=== PATIENT | female | born 1945 | race Two or more races ===

== ENCOUNTER 2018-06-24 06:20 | Day surgery (SDC) | payer OTHER ==
[2018-06-24] MEDS ORDERED: CEFAZOLIN 1 GM INJ (07:00)
[2018-06-24] MEDS ORDERED: SOD CHLORIDE 0.9% 1,000 ML IV (07:00)
[2018-06-24] MEDS ORDERED: EPHEDrine SULFATE 50 MG/5 ML SYG (07:00)
[2018-06-24] MEDS ORDERED: CEFAZOLIN 1 GM/50 ML (PMX) 50 ML IVPB (07:00)
[2018-06-24] MEDS ORDERED: SEVOFLURANE 15 MIN (07:00)
[2018-06-24 07:34] LABS: ADD MAN DIFF? NO
[2018-06-24 07:44] LABS: BASOPHILS % 0.9 % (0.0-2.0); EOSINOPHILS # 0.5 10^3/ul (0.0-0.5); EOSINOPHILS % 11.7 % (0.0-7.0); HEMATOCRIT 36.9 % (37.0-47.0); LYMPHOCYTES # 1.7 10^3/ul (0.8-2.9); LYMPHOCYTES % 37.2 % (15.0-51.0); MEAN CORPUSCULAR HEMOGLOBIN 24.1 pg (29.0-33.0); MEAN CORPUSCULAR HGB CONC 29.8 g/dl (32.0-37.0); MEAN CORPUSCULAR VOLUME 80.9 fl (82.0-101.0); MEAN PLATELET VOLUME 9.9 fl (7.4-10.4); MONOCYTE # 0.4 10^3/ul (0.3-0.9); MONOCYTES % 8.4 % (0.0-11.0); NEUTROPHIL # 1.9 10^3/ul (1.6-7.5); NEUTROPHILS % 41.6 % (39.0-77.0); PLATELET COUNT 308 10^3/UL (140-415); RED BLOOD COUNT 4.56 10^6/ul (4.20-5.40)
[2018-06-24 07:44] LABS: WHITE BLOOD COUNT 4.5 10^3/ul (4.8-10.8)
[2018-06-24 07:56] LABS: INR 0.91; PROTIME 12.4 Sec (11.9-14.9)
[2018-06-24 07:59] LABS: PARTIAL THROMBOPLASTIN TIME 24.8 Sec (23.0-35.0)
[2018-06-24 08:09] LABS: ALANINE AMINOTRANSFERASE 20 IU/L (13-69); ALBUMIN 4.5 g/dl (3.3-4.9); ALBUMIN/GLOBULIN RATIO 1.12; ALKALINE PHOSPHATASE 74 IU/L (42-121); ANION GAP 10 (5-13); ASPARTATE AMINO TRANSFERASE 28 IU/L (15-46); BILIRUBIN,INDIRECT 0.2 mg/dl (0-1.1); BILIRUBIN,TOTAL 0.2 mg/dl (0.2-1.3); BLOOD UREA NITROGEN 18 mg/dl (7-20); CALCIUM 9.4 mg/dl (8.4-10.2); CARBON DIOXIDE 28 mmol/L (21-31); CHLORIDE 104 mmol/L (97-110); GLUCOSE 90 mg/dl (70-220); POTASSIUM 4.2 mmol/L (3.5-5.1); SODIUM 142 mmol/L (135-144); TOTAL PROTEIN 8.5 g/dl (6.1-8.1)
[2018-06-24 08:14] LABS: CREATININE 1.18 mg/dl (0.44-1.00)
[2018-06-24] MEDS ORDERED: MIDAZOLAM 1 MG/ML 2 ML INJ (11:39)
[2018-06-24] MEDS ORDERED: PROPOFOL 20 ML (11:39)
[2018-06-24] MEDS ORDERED: FENTAnyl 50 MCG/ML VIAL (11:39)
[2018-06-24] MEDS ORDERED: HYDROCORTISONE 100 MG INJ (11:39)
[2018-06-24] MEDS ORDERED: DEXAMETHASONE 4 MG/ML 5 ML INJ (11:50)
[2018-06-24] MEDS ORDERED: KETOROLAC 30 MG INJ (11:50)
[2018-06-24] MEDS ORDERED: METOCLOPRAMIDE 10 MG INJ (11:50)
[2018-06-24] MEDS ORDERED: ONDANSETRON 4 MG INJ (11:50)
[2018-06-24] MEDS: ISOSULFAN BLUE 1% 5 ML INJ SC (11:55)
[2018-06-24] MEDS ORDERED: HYDROCODONE/APAP (7.5/325) TAB PO (13:00)
== END 2018-06-24 15:00 | disposition home or self-care (01) ==
LOC: SDS 06:20
DX: C50.912 Malignant neoplasm of unspecified site of left female breast (principal); I12.9 Hypertensive chronic kidney disease with stage 1 through stage 4 chronic kidney disease, or unspecified chronic kidney disease; N18.9 Chronic kidney disease, unspecified
CPT/HCPCS: 19301; 71045; 80053; 85025; 85610; 85730; 88307; 88331; 93005